=== PATIENT | female | born 1995 | race Caucasian/White ===

== ENCOUNTER 2018-05-21 09:05 | Inpatient (IN) | payer OTHER ==
[~2018-05-21] VITALS: Ht 172.7 cm; Wt 80.9 kg
[2018-05-21] VITALS (37 sets, daily range): BP systolic 104–151; BP diastolic 52–99; PULSE 58–137; TEMP 97.5–98.8
[~2018-05-21 09:05] MED LIST: CATAPRES 0.1MG0.1 MG PO; MACROBID 1100 MG/CAP PO; NORCO 325 MG-51 TAB PO
[2018-05-21] MEDS ORDERED: PRENATAL MVI (09:40)
[2018-05-21 11:11] LABS: BASO % 0.3 % (0.0-2.0); EOS # 0.1 (0.0-0.7); EOS % 0.8 % (0-4.0); GRAN # 7.5 (1.4-6.5); HEMATOCRIT 38.3 % (37.0-47.0); HEMOGLOBIN 12.7 g/dl (12.5-16.0); LYMPH # 1.6 (1.2-3.4); LYMPH % 15.9 % (20.0-51.0); MEAN CELL VOLUME 93 fl (80.0-100.0); MEAN CORPUSCULAR HEMOGLOBIN 31 pg (27.0-31.0); MEAN CORPUSCULAR HGB CONC 33 g/dl (33.0-37.0); MEAN PLATELET VOLUME 12.6 fl (7.4-10.4); MONO % 9.4 % (1.7-9.3); PLATELET COUNT 159 K/mm3 (130-400)
[2018-05-21 11:24] LABS: TRICYCLIC ANTIDEPRESS URINE NEGATIVE
[2018-05-22 05:17] VITALS: BP 121/96; PULSE 121; TEMP 98.4
[2018-05-22 05:35] VITALS: BP 128/81; PULSE 100
[2018-05-22 07:33] VITALS: BP 125/74; PULSE 104; TEMP 98.5
[2018-05-22] MEDS ORDERED: IBU800 M1 PO (09:23)
[2018-05-22] MEDS ORDERED: PERCOCET 325 MG1 TA2 PO (09:24)
[2018-05-22 17:31] VITALS: BP 121/84; PULSE 123; TEMP 98.3
[2018-05-22 21:30] VITALS: BP 114/70; PULSE 106; TEMP 98.6
[2018-05-23 08:20] VITALS: BP 122/75; PULSE 88; TEMP 97.9
[2018-05-23 16:04] VITALS: BP 122/82; PULSE 92; TEMP 98
== END 2018-05-23 17:15 | disposition home or self-care (01) | DRG 775 ==
LOC: LDRO 09:05 → LDR 10:30 → OB 10:30
PROVIDERS: Obstetrics & Gynecology
PROC: 10E0XZZ Delivery of Products of Conception, External Approach (ICD-10-PCS; principal; 2018-05-21)
PROC: 0KQM0ZZ Repair Perineum Muscle, Open Approach (ICD-10-PCS; 2018-05-21)
PROC: 0UQMXZZ Repair Vulva, External Approach (ICD-10-PCS; 2018-05-21)
DX: O99.824 Streptococcus B carrier state complicating childbirth (principal); O48.0 Post-term pregnancy; O70.1 Second degree perineal laceration during delivery; O71.82 Other specified trauma to perineum and vulva; O75.89 Other specified complications of labor and delivery; Z3A.40 40 weeks gestation of pregnancy; Z37.0 Single live birth
CPT/HCPCS: J2210; J2540; J2590; J2795; J7120